=== PATIENT | female | born 1970 | race Two or more races ===

== ENCOUNTER 2025-04-01 14:38 | Emergency (ER) | payer MEDICARE, MEDICAID, SELFPAY ==
[2025-04-01 15:12] VITALS: BP 145/88; PULSE 88; RESP 18; TEMP 36.9; O2SAT 98; BMI 28.0
--- NOTE | 2025-04-01 15:16 | XR_ITS ---
Examination: CT brain head without contrast. 2-D sagittal coronal reconstructions Date and time of exam:April 01, 2025, 1531 hours, comparison February 26, 2022. INDICATIONS: Severe head pain with dizziness today CTDI: vol (mGy):47 DLP: (mGycm):913 Technique: Multiple CT axial sections of the brain have been obtained, 5 mm slice thickness. Contrast has not been administered. 2-D sagittal, coronal reconstructions have been obtained Low dose protocols were performed. One or more of the following dose reduction techniques were used; automated exposure control, adjustment of the mA and/or KV according to patient size, use of iterative reconstruction technique. Findings: No significant ventricular enlargement. Intra-axial or extra-axial hemorrhage density is not seen. No mass effect or midline shift Basal cisterns are not remarkable. Fourth ventricle is midline. Cranial vault intact. Impression: Negative for acute hemorrhage, mass effect or midline shift As clinically warranted, consider brain MRI MRA without contrast, stroke protocol, follow-up
--- NOTE | 2025-04-01 15:17 | PD.EDRME ---
Rapid Medical Screening Exam RME Arrival date/time: 04/01/25 14:38 55-year-old female with a history of hypertension presents to the emergency room with a chief complaint of a 10 out of 10 headache. Patient was sent over by her primary care provider I have greeted and performed a focused initial assessment of this patient. A comprehensive ED assessment and evaluation of the patient, analysis of all test results, and completion of the medical decision making process will be conducted by additional ED providers. Chief Complaint: Headache Time Seen by Provider: 04/01/25 14:45 Vital signs: Vital Signs Temperature 98.5 F 04/01/25 15:12 Pulse Rate 88 04/01/25 15:12 Respiratory Rate 18 04/01/25 15:12 Blood Pressure 145/88 H 04/01/25 15:12 Pulse Oximetry (%) 98 04/01/25 15:12 Oxygen Delivery Method Room Air 04/01/25 15:12 Vital signs reviewed by provider: Yes
[2025-04-01 15:59] LABS: Basophils # (Auto) 0.0 Thou/mm3 (0.0-0.2); Basophils % (Auto) 0 % (0-2.5); Eosinophils # (Auto) 0.1 Thou/mm3 (0.0-0.5); Eosinophils % (Auto) 1 % (0-10); Hematocrit 39.6 % (36.0-46.0); Hemoglobin 13.4 g/dL (12.0-16.0); Immature Granulocytes Auto 0.03 Thou/mm3 (0.00-0.00); Lymphocytes # (Auto) 2.4 Thou/mm3 (1.0-4.8); Lymphocytes % (Auto) 33 % (10-50); Mean Corpuscular HGB Conc 33.8 g/dl (31.0-37.0); Mean Corpuscular Hemoglobin 30.9 pg (25.0-35.0); Mean Corpuscular Volume 91 fL (80-100); Monocytes # (Auto) 0.4 Thou/mm3 (0.0-0.8); Monocytes % (Auto) 5 % (0-12); Neutrophils # (Auto) 4.4 Thou/mm3 (1.8-7.7); Neutrophils % (Auto) 60 % (37-80); Nucleated Red Blood Cell # 0.00 Thou/mm3 (0.00-0.00); Nucleated Red Blood Cell % 0 /100 WBC (0); Platelet Count 289 Thou/mm3 (140-440); RDW Standard Deviation 41.1 fL (36.4-46.3); Red Blood Count 4.34 Miln/mm3 (4.00-5.20); White Blood Count 7.4 Thou/mm3 (3.6-11.0)
[2025-04-01 16:19] LABS: Alanine Aminotransferase 30 U/L (10-49); Albumin, Serum 4.4 gm/dL (3.5-5.0); Albumin/Globulin Ratio 1.6 (1.2-2.2); Alkaline Phosphatase 100 U/L (46-116); Anion Gap 10 (7-16); Aspartate Amino Transferase 27 U/L (0-34); BUN/Creatinine Ratio 19 Ratio (12-20); Bilirubin,Total 0.3 mg/dL (0.3-1.2); Blood Urea Nitrogen 15 mg/dL (9-23); Calcium 10.0 mg/dL (8.3-10.6); Calcium (Corrected) 10.0 mg/dL (8.5-10.1); Carbon Dioxide 27.4 mMol/L (20.0-31.0); Chloride 105 mMol/L (98-107); Creatinine (Component) 0.8 mg/dL (0.6-1.3); Estimated Creatinine Clearance 75.4 mL/min (>60); Globulin 2.8 gm/dL (2.3-3.5); Glucose 107 mg/dL (74-106); Osmolality,Calculated 283 (275-295); Potassium 3.6 mMol/L (3.4-5.1); Sodium 142 mMol/L (136-145); Total Protein 7.2 gm/dL (5.7-8.2); eGFR > 60 See Note
[2025-04-01] MEDS: SUMAtriptan INJ 6 MG/0.5 ML VIAL SC (16:32)
--- NOTE | 2025-04-01 21:03 | PD.EDHA ---
ED Headache RME/HPI General Chief Complaint: Headache Stated Complaint: THUNDERCLAP HEADACHE PER MD; SENT BY M Time Seen by Provider: 04/01/25 14:45 Arrival date/time: 04/01/25 14:38 Limitations: no limitations RME / HPI RME / HPI Narrative: Patient is a 55-year-old female with a history of hypertension and a chronic headache disorder. She states she developed an occipital headache yesterday around midnight. This is consistent with headaches she has had in the past. She took several doses of acetaminophen and did not help. She denies any fevers or chills. Has no vision changes. No photophobia. No stiff neck or fever. She has no nausea or vomiting. She went to clinic for this and was routed here for emergent evaluation. She has no other acute complaints or concerns. Related Data Home Medications ?Medication ?Instructions ?Recorded ?Confirmed lisinopril 20 mg tablet 20 mg PO QDAY 06/24/19 02/26/22 cetirizine 10 mg tablet 1 tab PO QDAY 02/26/22 02/26/22 gabapentin 300 mg capsule 1 cap PO TID 02/26/22 02/26/22 Allergies Allergy/AdvReac Type Severity Reaction Status Date / Time No Known Allergies Allergy Verified 04/01/25 14:42 Review of Systems Review of Systems Systems Reviewed: All systems reviewed, normal except as documented ED Exam General Limitations: Present no limitations General appearance: Present alert and in no apparent distress Head Head exam: Present atraumatic Eye Eye exam: Present normal appearance, PERRL and EOMI ENT ENT exam: Present normal exam, normal oropharynx and mucous membranes moist Neck Neck exam: Present normal inspection, full ROM and trachea midline Chest Chest inspection: Present normal inspection and symmetric chest wall rise Respiratory Respiratory exam: Present normal lung sounds bilaterally Cardiovascular Cardiovascular exam: Present regular rate, normal rhythm and normal heart sounds Abdominal Exam Abdominal exam: Present soft and normal bowel sounds Extremities Exam Extremities exam: Present normal inspection and full ROM Back Exam Back exam: Present normal inspection and full ROM Neurological Exam Neurological exam: Present alert and oriented X3 Psychiatric Psychiatric exam: Present normal affect and normal mood Skin Skin exam: Present warm, dry, intact and normal color Course Quality Measures none Orders Category Date Time Status CT head/brain wo con Stat Exams 04/01/25 15:16 Completed CBC Stat Lab 04/01/25 15:26 Completed CMP [Comprehensive Metabolic Panel] Stat Lab 04/01/25 15:26 Completed SUMAtriptan INJ [Imitrex Inj] Med 04/01/25 15:20 Discontinued 6 mg SC X1 ONE Vital Signs Vital signs: Vital Signs Temperature 98.5 F 04/01/25 15:12 Pulse Rate 88 04/01/25 15:12 Respiratory Rate 18 04/01/25 15:12 Blood Pressure 145/88 H 04/01/25 15:12 Pulse Oximetry (%) 98 04/01/25 15:12 Oxygen Delivery Method Room Air 04/01/25 15:12 Headache MDM Narrative MDM Narrative:: Patient is a 55-year-old female with a history of hypertension and a chronic headache disorder. She states she developed an occipital headache yesterday around midnight. This is consistent with headaches she has had in the past. She took several doses of acetaminophen and did not help. She denies any fevers or chills. Has no vision changes. No photophobia. No stiff neck or fever. She has no nausea or vomiting. She went to clinic for this and was routed here for emergent evaluation. She has no other acute complaints or concerns. At the time my exam, patient was nontoxic-appearing in no visible signs of distress. Vital signs stable. She has no photophobia. She states she has not had symptomatic resolution but does not report symptomatic improvement. She states she is drove here and is able to drive home. Further therapies were offered however patient states she felt all left to go home at this time. Patient will be discharged at this time. Will provide neurology contact for patient so she can schedule follow-up appoint with neurology regarding her chronic headaches. She also advised to contact her primary doctor to schedule follow-up appointment. She was invited return to emergency room at anytime for any worsening or emergent changes as needed. Patient data External records reviewed:: None Clinical information provided by:: patient Social determinants that could affect healthcare access:: none Patient has the following chronic illnesses:: Hypertension How is presenting disease/condition affected by chronic disease/condition?: uneffected by Evaluation data The following diagnostics were reviewed and interpreted by me:: lab results and radiology exam(s) Lab and/or radiology exams considered but not ordered:: n/a Interpretation Summary: CBC and CMP are unremarkable. CT of the head was unremarkable for any intracranial pathology Medications / Prescriptions Medications or Prescriptions considered but not ordered:: n/a Medication administrations:: Medication Administration History Discontinued Medications Sumatriptan Succinate (Sumatriptan Inj 6 Mg/0.5 Ml Vial) 6 mg SC X1 ONE Stop: 04/01/25 15:21 Last Admin: 04/01/25 16:32 Dose: 6 mg Documented By: HERLINDA See above Consultations Consultation(s) initiated? (list below): No Diagnosis Differential diagnosis headache: migraine, tension headache and subarachnoid hemorrhage Most likely diagnosis given after review of the tests above:: Chronic headaches order Admission Indicated Admission indicated?: not indicated Admission Request Was there a request for admission?: No Disposition Plan Disposition Plan: Discharge Discharge Attestation Discharge Attestation: The patient and all family members were given an opportunity to ask questions and understood the discharge instructions. Discharge instructions specifically effects, indications for sooner follow up or return to the emergency department, and the expected course of current diagnosis. Patient condition: Stable Discharge Plan Plan Patient Disposition: HOME (Self Care) Patient condition on transfer: Stable Prescriptions/Referrals Prescriptions/Med Rec: No Action cetirizine 10 mg tablet 1 tab PO QDAY Patient Comments: TAKE 1 TABLET BY MOUTH EVERY DAY FOR ALLERGIES gabapentin 300 mg capsule 1 cap PO TID lisinopril 20 mg Tablet 20 mg PO QDAY Referrals: Semaj Rajput MD [Physician] - In 1 week (chronic headaches ) Essie Ballesteros PA-C [Primary Care Provider] - In 1 week Problem List Clinical Impression: Headache Patient/Caregiver Discharge Instructions Education Materials: Self-Care for Headaches Additional Instructions: - Continue your current therapies. - Contact your primary doctor to schedule close follow-up appointment. - You may also contact neurology within 24 to 40 hours to schedule follow-up appointment. - Please return here anytime for any worsening or emergent changes. Print Language: Maltese Stand Alone Forms: Jazz Award Info., Patient Portal Info Letter
[2025-04-01 21:28] VITALS: BP 118/72; PULSE 78; RESP 18; TEMP 537; TEMP 998.6; O2SAT 100
[2025-04-01 21:29] VITALS: TEMP 37.7
== END 2025-04-01 21:30 | disposition home or self-care (01) ==
PROVIDERS: Emergency Provider Nurse Practitioner Family; PCP Physician Assistant
DX: R51.9 Headache, unspecified (principal); I10 Essential (primary) hypertension
CPT/HCPCS: 36415; 70450; 80053; 85025; 96372; 99283; J3030